=== PATIENT | male | born 1960 | race Hispanic/Latino ===

== ENCOUNTER → 2024-03-08 | Outpatient (CLI) | payer OTHER ==
[~2024-03-08] MED LIST: IOHEXOL 350 MG/ML 100ML INFUS..BTL IV ONE; METOPROLOL TARTRATE 1 MG/ML 5ML VIAL IV ONE
== END | disposition home or self-care (01) ==
LOC: RAH 11:41
PROVIDERS: ATTEND Student in an Organized Health Care Education/Training Program
DX: I25.10 Atherosclerotic heart disease of native coronary artery without angina pectoris (principal); I50.9 Heart failure, unspecified; M47.815 Spondylosis without myelopathy or radiculopathy, thoracolumbar region
CPT/HCPCS: 75574; J3490 ×2; Q9967

== ENCOUNTER → 2024-07-01 | Outpatient (CLI) | payer OTHER ==
[~2024-07-01] VITALS: Ht 175.3 cm; Wt 118.8 kg
[~2024-07-01] MED LIST changes: +AEC81 PO; +CHOL-34 PO; -IOHEXOL 350 MG/ML 100ML INFUS..BTL IV ONE; +METO-408 PO; -METOPROLOL TARTRATE 1 MG/ML 5ML VIAL IV ONE; +SACU1TAB PO; +TORS10TA18 PO
[2024-07-01 12:01] LABS: BASOPHILS # (AUTO) 0.02 K/uL (0.00-0.20); BASOPHILS % (AUTO) 0.5 % (0.0-5.0); EOSINOPHILS # (AUTO) 0.14 K/uL (0.00-0.70); EOSINOPHILS % (AUTO) 3.8 % (0.0-8.0); HEMATOCRIT 40.7 % (42-54); IMMATURE GRANULOCYTE ABSOLUTE 0.03 K/uL (0-1); LYMPHOCYTES # (AUTO) 0.9 K/uL (1.0-4.8); LYMPHOCYTES % (AUTO) 23.3 % (21.0-51.0); MEAN CORPUSCULAR HEMOGLOBIN 24.9 pg (27.0-33.0); MEAN CORPUSCULAR HGB CONC 30.7 g/dL (32.0-36.0); MEAN CORPUSCULAR VOLUME 80.9 fL (79-99); MONOCYTES # (AUTO) 0.3 K/uL (0.1-1.0); MONOCYTES % (AUTO) 7.7 % (3.0-13.0); NEUTROPHILS # (AUTO) 2.3 K/uL (1.8-7.7); NEUTROPHILS % (AUTO) 63.9 % (40.0-77.0); PLATELET COUNT (AUTO) 134 K/uL (130-400); RED BLOOD CELL COUNT(AUTO) 5.03 MIL/uL (4.50-6.20); RED CELL DISTRIBUTION WIDTH 15.6 % (11.0-15.5); WHITE BLOOD COUNT (AUTO) 3.7 K/uL (4.8-10.8)
[2024-07-01 12:06] LABS: INR 1.14 (0.85-1.15); PROTHROMBIN TIME 12.2 SEC (9.6-11.6)
[2024-07-01 12:08] LABS: PARTIAL THROMBOPLASTIN TIME 32.5 SEC (26.3-35.5)
[2024-07-01 12:09] LABS: CREATININE 0.9 mg/dL (0.5-1.3); POTASSIUM 4.1 mmol/L (3.5-5.1)
[2024-07-01 12:24] LABS: APPEARANCE,URINE CLEAR (CLEAR); BILIRUBIN,URINE NEGATIVE (NEGATIVE); COLOR,URINE LIGHT-YELLOW (YELLOW); GLUCOSE, URINE (UA) NEGATIVE (NEGATIVE); KETONES,URINE NEGATIVE (NEGATIVE); LEUKOCYTE ESTERASE ,URINE NEGATIVE Leu/uL (NEGATIVE); NITRATE,URINE NEGATIVE (NEGATIVE); OCCULT BLOOD,URINE NEGATIVE (NEGATIVE); PROTEIN,URINE 20 mg/dL (NEGATIVE); UROBILINOGEN,URINE 0.2 mg/dL (0.2-1.0)
[2024-07-01 12:26] LABS: ADD UA MICROSCOPIC YES
[2024-07-01 12:33] LABS: MUCUS,URINE RARE LPF (None Seen); RBC,URINE 0-1 /HPF (0-1)
[2024-07-01 12:52] VITALS: BP 132/85; PULSE 102; RESP 17
[2024-07-01 13:12] LABS: B-TYPE NATRIURETIC PEPTIDE 437 pg/mL (0-100)
== END | disposition home or self-care (01) ==
LOC: DAH 10:00 → EDSTATUS 11:00
PROVIDERS: ATTEND Student in an Organized Health Care Education/Training Program
DX: I25.10 Atherosclerotic heart disease of native coronary artery without angina pectoris (principal); I50.20 Unspecified systolic (congestive) heart failure; I25.2 Old myocardial infarction; I70.0 Atherosclerosis of aorta; M47.814 Spondylosis without myelopathy or radiculopathy, thoracic region
CPT/HCPCS: 36415; 71045; 80048; 81001; 83880; 85025; 85610; 85730; 93005

== ENCOUNTER → 2024-08-16 | Outpatient (CLI) | payer OTHER ==
[~2024-08-16] VITALS: Ht 175.3 cm; Wt 119.1 kg
[~2024-08-16] MED LIST changes: +CETI10TA57 PO; +DIPH25TA51 PO; +LORA10TA7 PO
[2024-08-16 11:10] LABS: BASOPHILS # (AUTO) 0.03 K/uL (0.00-0.20); BASOPHILS % (AUTO) 0.6 % (0.0-5.0); EOSINOPHILS # (AUTO) 0.14 K/uL (0.00-0.70); EOSINOPHILS % (AUTO) 2.9 % (0.0-8.0); HEMATOCRIT 39.9 % (42-54); IMMATURE GRANULOCYTE ABSOLUTE 0.02 K/uL (0-1); LYMPHOCYTES # (AUTO) 1.1 K/uL (1.0-4.8); LYMPHOCYTES % (AUTO) 22.1 % (21.0-51.0); MEAN CORPUSCULAR HEMOGLOBIN 25.4 pg (27.0-33.0); MEAN CORPUSCULAR HGB CONC 31.3 g/dL (32.0-36.0); MEAN CORPUSCULAR VOLUME 80.9 fL (79-99); MONOCYTES # (AUTO) 0.3 K/uL (0.1-1.0); MONOCYTES % (AUTO) 6.3 % (3.0-13.0); NEUTROPHILS # (AUTO) 3.3 K/uL (1.8-7.7); NEUTROPHILS % (AUTO) 67.7 % (40.0-77.0); PLATELET COUNT (AUTO) 148 K/uL (130-400); RED BLOOD CELL COUNT(AUTO) 4.93 MIL/uL (4.50-6.20); RED CELL DISTRIBUTION WIDTH 16.5 % (11.0-15.5); WHITE BLOOD COUNT (AUTO) 4.9 K/uL (4.8-10.8)
[2024-08-16 11:13] VITALS: BP 122/81; PULSE 92; RESP 18; TEMP 97
[2024-08-16 11:14] LABS: APPEARANCE,URINE CLEAR (CLEAR); BILIRUBIN,URINE NEGATIVE (NEGATIVE); COLOR,URINE YELLOW (YELLOW); GLUCOSE, URINE (UA) NEGATIVE (NEGATIVE); KETONES,URINE NEGATIVE (NEGATIVE); LEUKOCYTE ESTERASE ,URINE NEGATIVE Leu/uL (NEGATIVE); NITRATE,URINE NEGATIVE (NEGATIVE); PH,URINE 5.5 (5.0-8.0); PROTEIN,URINE 30 mg/dL (NEGATIVE); UROBILINOGEN,URINE 0.2 mg/dL (0.2-1.0)
[2024-08-16 11:17] LABS: ADD UA MICROSCOPIC YES
[2024-08-16 11:19] LABS: POTASSIUM 4.4 mmol/L (3.5-5.1)
[2024-08-16 11:55] LABS: B-TYPE NATRIURETIC PEPTIDE 450 pg/mL (0-100)
[2024-08-16 11:57] LABS: BACTERIA,URINE Rare /HPF (None Seen); WBC,URINE 0-1 /HPF (0-1)
[2024-08-16 12:04] LABS: INR 1.17 (0.85-1.15); PROTHROMBIN TIME 12.5 SEC (9.6-11.6)
[2024-08-16 12:05] LABS: PARTIAL THROMBOPLASTIN TIME 31.8 SEC (26.3-35.5)
== END | disposition home or self-care (01) ==
LOC: EDSTATUS 10:00 → DAH 10:00
PROVIDERS: ATTEND Student in an Organized Health Care Education/Training Program
DX: Z01.818 Encounter for other preprocedural examination (principal); I25.10 Atherosclerotic heart disease of native coronary artery without angina pectoris; I25.2 Old myocardial infarction; I11.0 Hypertensive heart disease with heart failure; I50.20 Unspecified systolic (congestive) heart failure; R09.89 Other specified symptoms and signs involving the circulatory and respiratory systems; I70.0 Atherosclerosis of aorta; M47.814 Spondylosis without myelopathy or radiculopathy, thoracic region
CPT/HCPCS: 36415; 71045; 80048; 81001; 83880; 85025; 85610; 85730; 93005

== ENCOUNTER 2024-09-26 08:15 | Day surgery (SDC) | payer OTHER ==
[2024-09-23 14:57] VITALS: BP 139/80; PULSE 98; RESP 19; TEMP 97.2
--- NOTE | 2024-09-23 15:37 | HMCIMG ---
CHEST 1VW HISTORY: Preop COMPARISON: 08/16/2024 FINDINGS: A frontal projection of the chest was obtained. Mild bilateral pulmonary infiltrates are seen may be related to mild pulmonary vascular congestion with possible superimposed pneumonitis. The heart is borderline enlarged. Degenerative changes are seen. No evidence of aortic calcification is seen. IMPRESSION: 1. Mild bilateral pulmonary infiltrates are seen may be related to mild pulmonary vascular congestion with possible superimposed pneumonitis.
[2024-09-23 15:59] LABS: BASOPHILS # (AUTO) 0.02 K/uL (0.00-0.20); BASOPHILS % (AUTO) 0.3 % (0.0-5.0); EOSINOPHILS # (AUTO) 0.08 K/uL (0.00-0.70); EOSINOPHILS % (AUTO) 1.2 % (0.0-8.0); IMMATURE GRANULOCYTE ABSOLUTE 0.04 K/uL (0-1); LYMPHOCYTES # (AUTO) 1.2 K/uL (1.0-4.8); LYMPHOCYTES % (AUTO) 18.6 % (21.0-51.0); MEAN CORPUSCULAR HEMOGLOBIN 26.2 pg (27.0-33.0); MEAN CORPUSCULAR HGB CONC 31.8 g/dL (32.0-36.0); MEAN CORPUSCULAR VOLUME 82.2 fL (79-99); MONOCYTES # (AUTO) 0.4 K/uL (0.1-1.0); MONOCYTES % (AUTO) 6.4 % (3.0-13.0); NEUTROPHILS # (AUTO) 4.9 K/uL (1.8-7.7); NEUTROPHILS % (AUTO) 72.9 % (40.0-77.0); PLATELET COUNT (AUTO) 197 K/uL (130-400); RED BLOOD CELL COUNT(AUTO) 5.35 MIL/uL (4.50-6.20); RED CELL DISTRIBUTION WIDTH 17.3 % (11.0-15.5); WHITE BLOOD COUNT (AUTO) 6.7 K/uL (4.8-10.8)
[2024-09-23 16:01] LABS: APPEARANCE,URINE CLEAR (CLEAR); BILIRUBIN,URINE NEGATIVE (NEGATIVE); COLOR,URINE LIGHT-YELLOW (YELLOW); GLUCOSE, URINE (UA) NEGATIVE (NEGATIVE); KETONES,URINE NEGATIVE (NEGATIVE); LEUKOCYTE ESTERASE ,URINE NEGATIVE Leu/uL (NEGATIVE); NITRATE,URINE NEGATIVE (NEGATIVE); OCCULT BLOOD,URINE NEGATIVE (NEGATIVE); PROTEIN,URINE NEGATIVE (NEGATIVE); UROBILINOGEN,URINE 0.2 mg/dL (0.2-1.0)
[2024-09-23 16:11] LABS: INR 1.18 (0.85-1.15); PROTHROMBIN TIME 12.6 SEC (9.6-11.6)
[2024-09-23 16:13] LABS: PARTIAL THROMBOPLASTIN TIME 32.6 SEC (26.3-35.5)
[2024-09-23 16:21] LABS: CREATININE 0.9 mg/dL (0.5-1.3); POTASSIUM 3.4 mmol/L (3.5-5.1)
[2024-09-23 16:22] LABS: B-TYPE NATRIURETIC PEPTIDE 561 pg/mL (0-100)
[2024-09-23 16:28] LABS: ADD UA MICROSCOPIC NO
--- NOTE | 2024-09-25 08:18 | EKG ---
[facility] Test Date: 2024-09-23 Test Time: 14:37:04 Pat Name: JACQUIE BENJAMIN Department: [facility] Room: [facility] Gender: M Abstract Searcher: [id number] : 1960 Requested By: BRIANA ROBBINS Order Number: [id number] Reading MD: Boubacar Portillo Measurements Intervals [place] Rate: 86 P: 50 [place]: 168 QRS: 76 QRSD: 99 T: 45 QT: 377 QTc: 452 Interpretive Statements Sinus rhythm Left atrial enlargement Anterior infarct, old Compared to ECG 08/16/2024 10:58:02 No significant changes Electronically Signed On 09-26-2024 13:06:58 BATTERY MECHANIC by Boubacar Portillo Please click the below link to view image of tracing.
[~2024-09-26] VITALS: Ht 172.7 cm; Wt 121.6 kg
[~2024-09-26 08:15] MED LIST changes: +[UNRECOGNIZED DRUG - CODE] PO
[2024-09-26 08:30] VITALS: BP 127/78; PULSE 99; RESP 20; TEMP 97
[2024-09-26] MEDS ORDERED: FURO40TA5 PO (14:47)
== END 2024-09-26 10:30 | disposition home or self-care (01) ==
LOC: DAH 08:15
PROVIDERS: ATTEND Student in an Organized Health Care Education/Training Program
DX: I25.10 Atherosclerotic heart disease of native coronary artery without angina pectoris (principal); I11.0 Hypertensive heart disease with heart failure; I50.20 Unspecified systolic (congestive) heart failure; I50.84 End stage heart failure; Z87.891 Personal history of nicotine dependence; Z79.82 Long term (current) use of aspirin; Z79.899 Other long term (current) drug therapy; Z53.8 Procedure and treatment not carried out for other reasons
CPT/HCPCS: 71045; 80048; 83880; 85025; 85610; 85730; 81003; 36415; 93005; A4615; A4215; A4222; A4221; A4663; A4216; A4606; A4223 ×3

== ENCOUNTER 2024-10-19 11:20 | Emergency (ER) | payer OTHER ==
[~2024-10-19] VITALS: Ht 175.3 cm; Wt 117.9 kg
[~2024-10-19 11:20] MED LIST changes: +ATOR40TA69 PO; -DIPH25TA51 PO; +EMPA10TA PO; +FURO40TA7 PO; -LORA10TA7 PO; +POTA-192 PO; +PRAS10TA6 PO; -TORS10TA18 PO; +TORS20TA4 PO; -[UNRECOGNIZED DRUG - CODE] PO
--- NOTE | 2024-10-19 11:57 | ERN ---
ED Note History of Present Illness Stated Complaint: HEART CATH 2 WEEKS AGO,SOB Time Seen by MD: 11:24 Dictation: PATIENT IS A 63-YEAR-OLD OXYGEN DEPENDENT MALE COMING IN WITH O2 AT 2 L PER NASAL CANNULA WITH A BOTTLE. CLAIMS HE HAS HAD SHORTNESS A BREATH FOR THE LAST 2-3 DAYS WITH A PRODUCTIVE COUGH AND BROWN PHLEGM. STATES HIS LUNGS WERE DAMAGE WHEN HE HAD PNEUMONIA LAST YEAR AND HE HAS BEEN ON OXYGEN SINCE. HE HAS HAD NO FEVER NO CHILLS NO LOSS OF TASTE OR SMELL STATES HE THOUGHT IT WAS HIS ALLERGIES BUT SINCE HIS SHORTNESS A BREATH HAS GOTTEN PROGRESSIVELY WORSE DECIDED TO COME TO THE HOSPITAL. STATES HE IS STATUS POST A HEART CATHETERIZATION WITH TWO STENTS BY DR[place] ROBBINS [place] [facility] [place]ergies: Coded Allergies: No Known Drug Allergies (Unverified Allergy, Unknown, 07/01/24) Home Meds Active Scripts Torsemide (Torsemide) 20 Mg Tablet, 40 MG PO DAILY, #180 TAB 1 Refill Prov:JOSH ALLISON MD 10/06/24 Prasugrel HCl (Effient) 10 Mg Tablet, 10 MG PO DAILY, #90 TAB 2 Refills Prov:[facility]IMA [facility] 10/04/24 Potassium Chloride (K-Dur/Klor-Con) 20 Meq Ertab, 20 MEQ PO BID, #60 TAB.EC 2 Refills Prov:IBRAHIMA [facility] 10/04/24 Furosemide (Lasix 40Mg Tab) 40 Mg Tablet, 40 MG PO DAILY, #90 TAB Prov:IBRAHIMA [facility] 10/04/24 Empagliflozin (Jardiance) 10 Mg Tablet, 10 MG PO DAILY, #30 TAB 2 Refills Prov:IBRAHIMA [facility] 10/04/24 Atorvastatin Calcium (LIPITOR) 40 Mg Tablet, 40 MG PO HS, #90 TAB 1 Refill Prov:IBRAHIMA [facility] 10/04/24 Sacubitril/Valsartan (Entresto 24 mg-26 mg Tablet) 24 Mg-26 Mg Tablet, 0.5 TAB PO DAILY, #30 TAB Prov:IBRAHIMA [facility] 10/04/24 Reported Medications Metoprolol Succinate (Metoprolol Succinate) 25 Mg Tab.er.24h, 0.5 TAB PO DAILY for 30 Days, #30 TAB 0 Refills 09/26/24 Cetirizine HCl (Cetirizine HCl) 10 Mg Tablet, 10 MG PO DAILY, TAB 08/16/24 Aspirin (ASPIRIN 81 MG ECTAB) 81 Mg Ectab, 81 MG PO DAILY, TAB.EC 07/01/24 Cholecalciferol (Vitamin D3) (Vitamin D3) 25 Mcg (1000 Unit) Tablet, 25 MCG PO DAILY, TAB 07/01/24 Past Medical History Past Medical History: Heart Disease Surgical History: None PSYCH History: no pertinent psych hx Family History: CAD RN Note Reviewed/Agreed w/PFSH: Yes Review of System Dictation CONSTITUTIONAL: NEGATIVE EXCEPT FOR HPI HEAD/FACE: NEGATIVE EXCEPT FOR HPI EENT: NEGATIVE EXCEPT FOR HPI RESPIRATORY: NEGATIVE EXCEPT FOR HPI SHORTNESS OF BREATH WITH BROWN PRODUCTIVE COUGH GASTROINTESTINAL/ABDOMINAL: NEGATIVE EXCEPT FOR HPI GENITOURINARY: NEGATIVE EXCEPT FOR HPI MUSCULOSKELETAL: NEGATIVE EXCEPT FOR HPI INTEGUMENTARY: NEGATIVE EXCEPT FOR HPI NEUROLOGICAL/PSYCH: NEGATIVE EXCEPT FOR HPI HEMATOLOGIC/LYMPHATIC: NEGATIVE EXCEPT FOR HPI ALL SYSTEMS NEGATIVE, EXCEPT NOTED ABOVE. 13 POINT REVIEW OF SYSTEMS ASSESSED AND ALL NEGATIVE EXCEPT FOR ABOVE. Initial Vital Sign VS Vital Signs Date Time Temp Pulse Resp B/P (MAP) Pulse Ox O2 Delivery O2 Flow Rate FiO2 10/19/24 12:14 97.5 63 18 121/79 95 Nasal Cannula 2.0 10/19/24 14:28 28 Physical Exam Dictation VITAL SIGNS REVIEWED O2 AT 2 L PER NASAL CANNULA WITH HOME O2 WITH PATIENT GENERAL APPEARANCE: ALERT, ORIENTED X 3, MILD ACUTE DISTRESS, WELL DEVELOPED, NOURISHED. APPEARS MILDLY DEBILITATED HEAD AND FACE: NON-TRAUMATIC. EYES: PERRL, PINK CONJUNCTIVAS, EYELID NO TRAUMA, ANTERIOR CHAMBER WITH ARCUS SENILIS. EARS: PINNAS INTACT AND NO SIGNS OF TRAUMA OR ERYTHEMA EAR CANALS CLEAR AND NO DISCHARGE TM NO ERYTHEMA NOSE: NO DISCHARGE, NO BLEEDING. OROPHARYNX: MOUTH NORMAL, TONGUE PINK, PHARYNX CLEAR,NO ERYTHEMA, TONSILS NO EXUDATES, NO ABSCESSES NOTED, MUCOUS MEMBRANE MOIST NECK: SUPPLE, NON-TENDER, NO THYROMEGALY, NO MASSES, NO JVD, NO BRUITS BREAST:DEFERRED CHEST:NO TENDERNESS, NO CREPITUS, NO PARADOXICAL MOVEMENT, NO RETRACTIONS LUNGS:CLEAR, WELL-VENTILATED, SYMMETRIC, NO RALES, NO WHEEZING, NO RHONCHI, NO STRIDOR, BILATERAL BREATH SOUNDS CLEAR TO AUSCULTATION DIMINISHED IN THE BASES NO TACHYPNEA NO RETRACTIONS HEART: REGULAR RATE, REGULAR RHYTHM, NO MURMUR, NO GALLOPS VASCULAR: NO PERIPHERAL EDEMA, ABDOMEN: SOFT, POSITIVE BOWEL SOUNDS, NONDISTENDED, NO GUARDING, NONTENDER, NO REBOUND, NO MASSES NO HEPATOMEGALY, NO SPLENOMEGALY, NO TOLEDO'S SIGN, NO HERNIAS. RECTAL: DEFERRED GENITAL: DEFERRED NEUROLOGICAL: NORMAL SPEECH, MOTOR FUNCTION INTACT, SENSORY FUNCTION INTACT MUSCULOSKELETAL: NECK NONTENDER, FULL RANGE OF MOTION, BACK NONTENDER, FULL RANGE OF MOTION, EXTREMITIES: NONTENDER, FULL RANGE OF MOTION SKIN: COLOR PINK, DRY, NO TURGOR, NO RASH, NO LACERATIONS, NO ABRASIONS, NO CONTUSIONS. LYMPHATIC: DEFERRED Results (Laboratory/Radiology) Laboratory/Radiology Laboratory Tests Test 10/19/24 12:17 10/19/24 12:20 White Blood Count 5.8 K/uL (4.8-10.8) Red Blood Count 5.63 MIL/uL (4.50-6.20) Hemoglobin 13.9 g/dL (14.0-18.0) L Hematocrit 45.4 % (42-54) Mean Corpuscular Volume 80.6 fL (79-99) Mean Corpuscular Hemoglobin 24.7 pg (27.0-33.0) L Mean Corpuscular Hemoglobin Concent 30.6 g/dL (32.0-36.0) L Red Cell Distribution Width 17.1 % (11.0-15.5) H Platelet Count 138 K/uL (130-400) Mean Platelet Volume 9.2 fL (7.5-10.5) Immature Granulocyte % (Auto) 0.3 % (0-1) Neutrophils (%) (Auto) 70.8 % (40.0-77.0) Lymphocytes (%) (Auto) 19.3 % (21.0-51.0) L Monocytes (%) (Auto) 7.9 % (3.0-13.0) Eosinophils (%) (Auto) 1.4 % (0.0-8.0) Basophils (%) (Auto) 0.3 % (0.0-5.0) Neutrophils # (Auto) 4.1 K/uL (1.8-7.7) Lymphocytes # (Auto) 1.1 K/uL (1.0-4.8) Monocytes # (Auto) 0.5 K/uL (0.1-1.0) Eosinophils # (Auto) 0.08 K/uL (0.00-0.70) Basophils # (Auto) 0.02 K/uL (0.00-0.20) Absolute Immature Granulocyte (auto 0.02 K/uL (0-1) Nucleated Red Blood Cells 0.0 % (0.0-0.19) Red Blood Cell Morphology See comments Sodium Level 135 mmol/L (136-145) L Potassium Level 3.7 mmol/L (3.5-5.1) Chloride Level 93 mmol/L (101-111) L Carbon Dioxide Level 39 mmol/L (21-32) H Blood Urea Nitrogen 19 mg/dL (7-18) H Creatinine 1.0 mg/dL (0.5-1.3) Glomerular Filtration Rate Calc 84 mL/min (>90) Random Glucose 113 mg/dL (70-105) H Total Calcium 9.9 mg/dL (8.5-10.1) Troponin I High Sensitivity 28 ng/L (4-75) B-Type Natriuretic Peptide 261 pg/mL (0-100) H SARS-CoV-2 Antigen (Rapid) PRESUMPTIVE NEGATIVE CHEST 1VW REASON: SHORTNESS A BREATH PRODUCTIVE COUGH WITH BROWN PHLEGM COMPARISON: 10/05/2024 FINDINGS: Single view of the chest was obtained. Lungs are clear. Heart size is normal. There is no pulmonary vascular congestion. Mediastinum and bony thorax appear unremarkable. IMPRESSION: 1. Normal single view chest x-ray. Labs Reviewed?: Yes EKG Comment: EKG SINUS RHYTHM/HEART RATE 92/LEFT ATRIAL ENLARGEMENT/NONSPECIFIC CHANGES ANTERIOR LEADS. ED Course ED Course Orders Procedure Category Date Status Time Covid19 (Sars Antigen LAB 10/19/24 Complete Rapid) 11:54 Cbc With Differential LAB 10/19/24 Complete 11:54 B-Type Natriuretic LAB 10/19/24 Complete Peptide 11:54 Chest 1vw RAD 10/19/24 Resulted 11:54 12 Lead Ekg Tracing- EKG 10/19/24 Complete Technical 11:54 Troponin I High LAB 10/19/24 Complete Sensitivity 11:54 Basic Metabolic Panel LAB 10/19/24 Complete 11:54 Furosemide 100mg Vial PHA 10/19/24 In Process (Lasix 100mg Vial) 14:30 Current Medications Medications (Trade) Dose Ordered Sig/James Route PRN Reason Start Time Stop Time Status Last Admin Dose Admin Furosemide (LASix 100MG VIAL) 80 mg ONCE IVP 10/19/24 14:30 10/19/24 21:30 10/19/24 14:56 Vital Signs Date Time Temp Pulse Resp B/P (MAP) Pulse Ox O2 Delivery O2 Flow Rate FiO2 10/19/24 14:28 97.9 86 16 118/69 95 Nasal Cannula* 2 28 10/19/24 12:14 97.5 63 18 121/79 95 Nasal Cannula 2.0 HEART Score Response (Comments) Value EKG: Repolarization changes 1 Age: 45-65yrs (+1) 1 Risk Factors: 1-2 risk factors (+1) 1 Initial Troponin: Normal limit (0) 0 Total 3 Medical Decision Making MDM MDM: DIFFERENTIAL DIAGNOSIS: SARS/PNEUMONIA/BRONCHITIS/CHF EXACERBATION/ELECTROLYTE IMBALANCE/DEHYDRATION/ACS/AMI RATIONALE: TESTS CONSIDERED AND ORDERED SECONDARY TO SHARED DECISION MAKING INCLUDE: RADIOLOGY/LABS/EKG PREVIOUS OUTSIDE RECORDS REVIEWED: OLD ER VISITS. REVIEWED RISK OF COMPLICATION AND/OR MORBIDITY OR MORTALITY OF PATIENT MANAGEMENT: NONE MEDICATIONS-PER MEDICATION RECONCILIATION NO NEED FOR HOSPITALIZATION: PATIENT DOES NOT MEET CRITERIA FOR HOSPITALIZATION. NO NEED FOR EMERGENCY MAJOR/MINOR SURGERY: NO THERE ARE NO SOCIAL CONCERNS WITH THIS PATIENT. PRESCRIPTION DRUG MANAGEMENT ALBUTEROL PRESCRIPTIONS WILL INCLUDE SYMPTOMATIC CARE PATIENT'S PRIOR EXTERNAL MEDICAL RECORDS FROM OTHER ER VISITS WERE REVIEWED BY ME INDICATED. PRIOR TESTING AND RESULTS FROM PREVIOUS VISITS WERE REVIEWED. PRIOR TESTS WERE TAKEN INTO ACCOUNT WITH MEDICAL DECISION MAKING AND RESOURCE UTILIZATION, INDEPENDENT HISTORIAN/HISTORIANS WERE USED TO OBTAIN COMPLETE MEDICAL HISTORY. I INDEPENDENTLY INTERPRETED THE TEST THAT WERE PERFORMED, RESULTS WERE REVIEWED BY ME AND CONSIDERED FINDINGS ON RADIOLOGY IF ORDERED. MEDICAL MANAGEMENT AND EXAMINATION INTERPRETATION DISCUSSIONS WERE HAD BY ME WITH OTHER QUALIFIED HEALTHCARE PROFESSIONALS INDICATED FOR THE PATIENT'S CARE. DX & DISP Disposition: Discharge Departure Impression: Primary Impression: Acute on chronic diastolic CHF (congestive heart failure) Additional Impressions: CAD (coronary artery disease), Stage III chronic kidney disease, Supplemental oxygen dependent Condition: Stable Additional Instructions: FOLLOW-UP WITH PRIMARY CARE PROVIDER IN 1 TO 2 DAYS. TAKE MEDICATIONS DIRECTED HERE IN THE EMERGENCY ROOM. OKAY TO CONTINUE HOME MEDICATIONS UNLESS OTHERWISE DISCUSSED DURING YOUR VISIT IN THE EMERGENCY ROOM TODAY. RETURN TO YOUR NEAREST EMERGENCY ROOM IF SYMPTOMS WORSEN OR IF THERE IS NO IMPROVEMENT. CALL 911 IF YOU NEED IMMEDIATE ASSISTANCE. TAKE TYLENOL OR MOTRIN URIM-[id number] NEEDED AND IF NO CONTRAINDICATIONS ARE PRESENT. INCREASE ORAL HYDRATION. A WOUND CULTURE OR URINE CULTURE WAS ORDERED HERE IN THE EMERGENCY ROOM DEPARTMENT PLEASE FOLLOW-UP WITH PRIMARY CARE PROVIDER AND ADVISE THEM TO GET REPEAT PORTS FROM OUR FACILITY. IF YOU HAD ANY [place] WRAP/SPLINTS THAT WERE APPLIED HERE, PLEASE DO NOT REMOVE THEM UNTIL YOU SEE YOUR PRIMARY CARE OR SPECIALTY. CONTINUE ALL MEDICATIONS AND TREATMENTS AT HOME, FOLLOW UP WITH YOUR DOCTOR IN 1-2 DAYS. Referrals: SHIRA DACOSTA MD (PCP) Time of Disposition: 15:23 I have reviewed the case, and I agree with, Diagnosis and Plan FRANSICO MOON NP Oct 19, 2024 11:57
--- NOTE | 2024-10-19 12:10 | EKG ---
[facility] Test Date: 2024-10-19 Test Time: 12:07:43 Pat Name: JACQUIE BENJAMIN Department: ED Room: Gender: M Gastroenterology Professor: [id number] : 1960 Requested By: FRANSICO MOON Order Number: [id number] Reading MD: Derek Lay Measurements Intervals [place] Rate: 92 P: 66 [place]: 178 QRS: 52 QRSD: 106 T: 58 QT: 386 QTc: 478 Interpretive Statements Sinus rhythm Probable left atrial enlargement Anterior infarct, old Compared to ECG 09/26/2024 11:05:23 Ventricular premature complex(es) no longer present Myocardial infarct finding still present Electronically Signed On 10-19-2024 19:18:28 STRATEGIC INSIGHTS LEAD by Derek Lay Please click the below link to view image of tracing.
[2024-10-19 12:30] LABS: BASOPHILS # (AUTO) 0.02 K/uL (0.00-0.20); BASOPHILS % (AUTO) 0.3 % (0.0-5.0); EOSINOPHILS # (AUTO) 0.08 K/uL (0.00-0.70); EOSINOPHILS % (AUTO) 1.4 % (0.0-8.0); HEMATOCRIT 45.4 % (42-54); IMMATURE GRANULOCYTE ABSOLUTE 0.02 K/uL (0-1); LYMPHOCYTES # (AUTO) 1.1 K/uL (1.0-4.8); LYMPHOCYTES % (AUTO) 19.3 % (21.0-51.0); MEAN CORPUSCULAR HEMOGLOBIN 24.7 pg (27.0-33.0); MEAN CORPUSCULAR HGB CONC 30.6 g/dL (32.0-36.0); MEAN CORPUSCULAR VOLUME 80.6 fL (79-99); MONOCYTES # (AUTO) 0.5 K/uL (0.1-1.0); MONOCYTES % (AUTO) 7.9 % (3.0-13.0); NEUTROPHILS # (AUTO) 4.1 K/uL (1.8-7.7); NEUTROPHILS % (AUTO) 70.8 % (40.0-77.0); PLATELET COUNT (AUTO) 138 K/uL (130-400); RED BLOOD CELL COUNT(AUTO) 5.63 MIL/uL (4.50-6.20); RED CELL DISTRIBUTION WIDTH 17.1 % (11.0-15.5); WHITE BLOOD COUNT (AUTO) 5.8 K/uL (4.8-10.8)
[2024-10-19 12:37] LABS: POTASSIUM 3.7 mmol/L (3.5-5.1)
--- NOTE | 2024-10-19 13:15 | NUR ---
PT JUST NOW PLACED IN ED BED 9
--- NOTE | 2024-10-19 13:20 | NUR ---
assumed care at this time
[2024-10-19 13:37] LABS: B-TYPE NATRIURETIC PEPTIDE 261 pg/mL (0-100)
--- NOTE | 2024-10-19 14:44 | HMCIMG ---
CHEST 1VW REASON: SHORTNESS A BREATH PRODUCTIVE COUGH WITH BROWN PHLEGM COMPARISON: 10/05/2024 FINDINGS: Single view of the chest was obtained. Lungs are clear. Heart size is normal. There is no pulmonary vascular congestion. Mediastinum and bony thorax appear unremarkable. IMPRESSION: 1. Normal single view chest x-ray.
[2024-10-19] MEDS: furoSEMIDE 100MG VIAL 10 MG/ML VIAL IVP SCH (14:56)
[2024-10-19 16:02] VITALS: BP 121/72; PULSE 82; RESP 16; TEMP 97.9; O2SAT 95
== END 2024-10-19 16:17 | disposition home or self-care (01) ==
LOC: EDH 11:20
DX: I50.33 Acute on chronic diastolic (congestive) heart failure (principal); N18.30 Chronic kidney disease, stage 3 unspecified; I25.10 Atherosclerotic heart disease of native coronary artery without angina pectoris; Z20.822 Contact with and (suspected) exposure to COVID-19; Z79.02 Long term (current) use of antithrombotics/antiplatelets; Z79.82 Long term (current) use of aspirin; Z79.84 Long term (current) use of oral hypoglycemic drugs; Z79.899 Other long term (current) drug therapy; Z99.81 Dependence on supplemental oxygen
CPT/HCPCS: 99285; 96374; 71045; 87426; 84484; 80048; 83880; 85025; 36415; 93005; J1940